=== PATIENT | male | born 1950 | race Caucasian/White ===

== ENCOUNTER 2016-09-10 06:59 | Emergency (ER) | payer OTHER ==
[2016-09-10 08:15] LABS: URINE BILIRUBIN NEGATIVE (NEGATIVE); URINE BLOOD NEGATIVE (NEGATIVE); URINE GLUCOSE (UA) NEGATIVE (NEGATIVE); URINE LEUKOCYTE ESTERASE NEGATIVE (NEGATIVE); URINE NITRITE NEGATIVE (NEGATIVE); URINE PROTEIN TRACE (NEGATIVE); URINE UROBILINOGEN NORMAL (0-1 mg/dl)
[2016-09-10 08:20] LABS: URINE APPEARANCE CLEAR; URINE COLOR YELLOW
--- NOTE | 2016-09-10 10:36 | CT ---
Exam: CT abdomen and pelvis without contrast COMPARISON: None INDICATION: Bilateral flank pain since 09/04/2016. 1400 mL of urine was drained by ED. TECHNIQUE: CT examination of the abdomen and pelvis was obtained without contrast. FINDINGS: Urinary bladder is decompressed by a Khan catheter. There is no hydronephrosis. There is moderate bilateral perinephric stranding which is nonspecific and symmetric. No renal calculus is identified within either kidney, ureter or bladder. Mild to moderate prostatomegaly. 2 cm subcapsular lesion within the inferior aspect of the spleen is noted and likely a cyst. 17 mm cyst is noted within the caudate lobe of the liver. Subcentimeter low-density lesion within the anterior right lower liver is noted, and statistically likely to be a cyst. Liver is otherwise unremarkable on this noncontrast exam. Pancreas is within normal limits. There is no adrenal mass. Gallbladder is unremarkable. Atheromatous but nonaneurysmal abdominal aorta and iliac arteries. Tiny fat-containing left inguinal hernia is noted. The transverse and ascending colon are distended with stool and gas. The descending and rectosigmoid colon are relatively decompressed and there is no discrete transition point. Ensure patient is up-to-date with colonoscopy screening recommendations. There is no bowel obstruction, free air or free intraperitoneal fluid. There is bibasilar atelectasis or scarring, right slightly greater than left. There is no pleural effusion. There are hypoplastic ribs at T12, with only 4 nonrib-bearing lumbar vertebra. There is grade 1 anterolisthesis of L3 on L4 secondary to underlying facet arthropathy. Minor retrolisthesis of L4 on S1 is noted. Degenerative disc disease is most pronounced at L3-4 and L4-S1. IMPRESSION: 1. No hydronephrosis. Nonspecific perinephric stranding is seen bilaterally. Urinary bladder decompressed by Khan catheter. 2. No acute findings identified to explain back or flank pain. 3. Several incidental findings as above, including splenic and hepatic cysts, bibasilar atelectasis or scarring and chronic changes in the bones as above. Findings were discussed with Dr. Khan at 1031 hours 09/10/2016.
[2016-09-10 11:24] LABS: HEMATOCRIT 40.9 % (32.0-52.0); HEMOGLOBIN 14.4 gm/l (14.0-18.0); MEAN CORPUSCULAR HGB CONC 35.2 g/dl (33.0-37.0)
[2016-09-10 11:29] LABS: ABSOLUTE NEUTROPHIL COUNT 7.7 K/mm3 (1.8-7.7); BASO # 0.1 K/mm3 (0.0-0.2); BASO % 0.5 % (0.2-1.0); EOS # 0.1 (0.0-0.5); EOS % 0.6 % (0.9-2.9); IMM NEUT # 0.1 K/mm3 (0-0.2); IMM NEUT% 0.6 % (0-1); LYMPH # 1.2 (1.0-4.8); LYMPH % 11.7 % (15-45); MEAN CELL VOLUME 90.1 fl (80.0-94.0); MEAN CORPUSCULAR HEMOGLOBIN 31.7 pg (27.0-31.0); MEAN PLATELET VOLUME 9.5 fl (7.4-10.4); MONO # 0.8 (0.0-0.8); MONO % 7.9 % (4-12); NEUT % 78.7 % (43-75); PLATELET COUNT 362 K/mm3 (130-400); RED CELL DISTRIBUTION WIDTH 11.5 % (11.5-14.5)
[2016-09-10 11:44] LABS: ALB/GLOB RATIO 1.1 (>1.0); ALBUMIN 3.6 gm/dL (3.5-5.7); CALCIUM 9.3 mg/dL (8.6-10.3)
== END 2016-09-10 11:18 | disposition home or self-care (01) ==
LOC: ED 06:59
DX: R33.9 Retention of urine, unspecified (principal); Z85.47 Personal history of malignant neoplasm of testis; Z87.891 Personal history of nicotine dependence; Z79.899 Other long term (current) drug therapy

== ENCOUNTER 2016-09-21 02:13 | Emergency (ER) | payer OTHER ==
[2016-09-21 02:55] LABS: URINE BILIRUBIN NEGATIVE (NEGATIVE); URINE BLOOD NEGATIVE (NEGATIVE); URINE GLUCOSE (UA) NEGATIVE (NEGATIVE); URINE LEUKOCYTE ESTERASE NEGATIVE (NEGATIVE); URINE NITRITE POSITIVE (NEGATIVE); URINE PROTEIN NEGATIVE (NEGATIVE); URINE UROBILINOGEN NORMAL (0-1 mg/dl)
[2016-09-21 02:58] LABS: URINE APPEARANCE CLEAR; URINE COLOR YELLOW
[2016-09-21 03:01] LABS: URINE BACTERIA 1+; URINE EPITHELIAL CELLS FEW /hpf; URINE RBC 0 /hpf
== END 2016-09-21 04:30 | disposition home or self-care (01) ==
LOC: ED 02:13
DX: R33.0 Drug induced retention of urine (principal); N40.0 Benign prostatic hyperplasia without lower urinary tract symptoms; T48.1X5A Adverse effect of skeletal muscle relaxants [neuromuscular blocking agents], initial encounter; Y92.9 Unspecified place or not applicable

== ENCOUNTER 2016-11-01 07:02 | Day surgery (SDC) | payer OTHER ==
[~2016-11-01 07:02] MED LIST: FENTANYL 250 MCG/5 ML AMP IV PRN; IV START KIT ONE; LACTATED RINGERS 1,000 ML IV SCH; LACTATED RINGERS 1,000 ML ONE; MIDAZOLAM HCL 5 MG/5 ML VIAL IV PRN
[2016-11-01] MEDS ORDERED: FENTANYL 250 MCG/5 ML AMP ONE (08:13)
[2016-11-01] MEDS ORDERED: MIDAZOLAM HCL 5 MG/5 ML VIAL ONE (08:13)
[2016-11-01] MEDS ORDERED: LACTATED RINGERS 1,000 ML ONE (09:03)
--- NOTE | 2016-11-03 14:37 | SURGPATH ---
[facility] [address] [place] [id number] Patient Name: RACHELLE PERRY MR#: [id number] : 1950 Gender: M Specimen #: [id number] Collected: 11/01/2016 Received: 11/02/2016 Reported: 11/03/2016 Submitting Phys: HERI PINA Copy To Phys: [facility] Clinical History / Pre-Operative Diagnosis: SCREENING; RULE OUT CA Specimen Source / Surgical Procedure Performed: #1-MID TRANSVERSE COLON POLYP; #2-PROXIMAL ASCENDING COLON MASS BIOPSY; #3-HEPATIC FLEXURE POLYP; #4-DESCENDING COLON POLYP AT 35 CM X2; #5-SIGMOID COLON POLYP AT 15 CM X2; #6-RECTAL POLYP AT 6 CM HIGH PRIORITY DIAGNOSIS. REQUIRES CLINICAL ATTENTION Interpretation: 1. MID TRANSVERSE COLON, POLYP, BIOPSY: - TUBULAR ADENOMA 2. PROXIMAL ASCENDING COLON, BIOPSY: - ADENOCARCINOMA 3. COLON, HEPATIC FLEXURE POLYP, BIOPSY: - TUBULAR ADENOMA 4. DESCENDING COLON, POLYP AT 35 CM, BIOPSY: - TUBULAR ADENOMA 5. SIGMOID COLON, POLYP AT 15 CM, BIOPSY: - TUBULAR ADENOMA 6. RECTUM, POLYP AT 6 CM, BIOPSY: - TUBULAR ADENOMA Electronically Signed Out Jing Morel M.D. Gross Description: #1 The specimen is received in a formalin filled container labeled with the patient's name and "mid transverse colon polyp". A polypoid red-salinas biopsy is 0.5 x 0.5 x 0.3 cm. Bisected. Totally embedded in one cassette. #2 The specimen is received in a formalin filled container labeled with the patient's name and "proximal ascending mass biopsy". Five pale salinas biopsies are 0.2-0.5 cm. Totally embedded in cassette #2. #3 The specimen is received in a formalin filled container labeled with the patient's name and "hepatic flexure polyp". A nodular, polypoid red-salinas biopsies 1.0 x 0.8 x 0.6 cm. Trisected. Totally embedded in cassette #3. #4 The specimen is received in a formalin filled container labeled with the patient's name and "descending colon polyp at 35 cm". Two nodular, polypoid red-salinas biopsies are 0.4 x 0.4 x 0.3 cm and 1.5 x 1.3 x 1 cm. The larger polyp is trisected and submitted in cassette 4B. Totally embedded in cassettes 4A and 4B. #5 The specimen is received in a formalin filled container labeled with the patient's name and "sigmoid colon polyp at 15 cm". Multiple nodular polypoid red-salinas biopsy fragments are 0.5 x 0.4 x 0.3 cm to 1.5 x 1.3 x 0.8 cm. Some the larger fragments are sectioned. Totally embedded in cassettes 5A-5D. #6 The specimen is received in a formalin filled container labeled with the patient's name and "rectal polyp at 6 cm". Multiple salinas biopsies are together 1.0 x 1.0 x 0.4 cm. Totally embedded in cassette #6. Lara Urias. Microscopic Description: 1. Sections show fragments of adenomatous colonic mucosa without high grade dysplasia. 2. Sections show fragments of colonic mucosa with invasive adenocarcinoma. The tumor grows as cribriforming glandular structures with extensive ulceration. A second review of new malignancy was performed at the intradepartmental pathology conference; the attendees agree with the diagnosis. 3. Sections show fragments of adenomatous colonic mucosa without high grade dysplasia. 4. Sections show fragments of adenomatous colonic mucosa without high grade dysplasia. 5. Sections show fragments of adenomatous colonic mucosa without high grade dysplasia. 6. Sections show fragments of adenomatous colonic mucosa without high grade dysplasia. 1: 99905 2: 51604 3: 99149 4: 55866 5: 25287 6: 84766 C18.2
--- NOTE | 2016-11-07 06:18 | PROCNOTE ---
Joseph Najera [id number] : 1950 DATE: 11/06/2016 This 66-year-old male patient within the practice of Sarah Johnson NP underwent screening colonoscopy on November 01. Multiple benign tubular adenomatous polyps were seen and removed. Additionally, in the very proximal ascending colon and annular mass was noted. Biopsies have confirmed adenocarcinoma within this mass. The patient has been contacted and informed and surgical consultation is recommended and he agrees. He is being referred to Dr. Joseph Alexander. JOB: [id number] CC: Dr. Joseph Johnson NP
== END 2016-11-01 10:00 | disposition home or self-care (01) ==
LOC: SDC 07:02
PROVIDERS: ATTEND Internal Medicine Gastroenterology
PROC: 0DBL8ZX Excision of Transverse Colon, Via Natural or Artificial Opening Endoscopic, Diagnostic (ICD-10-PCS; principal; 2016-11-01)
PROC: 0DBM8ZX Excision of Descending Colon, Via Natural or Artificial Opening Endoscopic, Diagnostic (ICD-10-PCS; 2016-11-01)
PROC: 0DBP8ZX Excision of Rectum, Via Natural or Artificial Opening Endoscopic, Diagnostic (ICD-10-PCS; 2016-11-01)
PROC: 0DBN8ZX Excision of Sigmoid Colon, Via Natural or Artificial Opening Endoscopic, Diagnostic (ICD-10-PCS; 2016-11-01)
PROC: 0DBK8ZX Excision of Ascending Colon, Via Natural or Artificial Opening Endoscopic, Diagnostic (ICD-10-PCS; 2016-11-01)
DX: Z12.11 Encounter for screening for malignant neoplasm of colon (principal); C18.2 Malignant neoplasm of ascending colon; D12.5 Benign neoplasm of sigmoid colon; D12.3 Benign neoplasm of transverse colon; D12.7 Benign neoplasm of rectosigmoid junction; D12.4 Benign neoplasm of descending colon; Z85.47 Personal history of malignant neoplasm of testis; N40.0 Benign prostatic hyperplasia without lower urinary tract symptoms; M79.1 Myalgia
CPT/HCPCS: 45385; 45380; J3010; J2250; J7120 ×2

== ENCOUNTER 2016-11-29 11:55 | Day surgery (SDC) | payer OTHER ==
[2016-11-29] MEDS ORDERED: LACTATED RINGERS 1,000 ML ONE (12:23)
[2016-11-29] MEDS ORDERED: IV START KIT ONE (12:24)
[2016-11-29] MEDS ORDERED: PROPOFOL 40 ML IV ONE (13:37)
--- NOTE | 2016-11-29 19:11 | RAD ---
Exam: Portable chest COMPARISON: None INDICATION: Preop for colonoscopy. FINDINGS: Semierect AP portable view of the chest demonstrates a cardiac silhouette which is within normal limits. Lungs are well-inflated. There is no focal airspace disease or pleural effusion. Bones of the chest wall within normal limits. IMPRESSION: No acute pulmonary process which would preclude this patient from surgery.
== END 2016-11-29 14:55 | disposition home or self-care (01) ==
LOC: SDC 11:55
PROVIDERS: ATTEND Surgery
PROC: 3E0H8GC Introduction of Other Therapeutic Substance into Lower GI, Via Natural or Artificial Opening Endoscopic (ICD-10-PCS; principal; 2016-11-29)
DX: C18.2 Malignant neoplasm of ascending colon (principal); D12.4 Benign neoplasm of descending colon; D12.5 Benign neoplasm of sigmoid colon; K62.1 Rectal polyp; Z87.891 Personal history of nicotine dependence
CPT/HCPCS: 71010; 45381; J7120

== ENCOUNTER 2016-11-30 06:00 | Inpatient (IN) | payer OTHER ==
[~2016-11-30 06:00] MED LIST changes: +ACETAMINOPHEN 500 MG TABLET ONE; +CELECOXIB 200 MG CAPSULE ONE; +ERTAPENEM SODIUM 1 G in NS 0.9% (MINI-BAG PLUS) 50 ML IV PRN; -FENTANYL 250 MCG/5 ML AMP IV PRN; +GABAPENTIN 600 MG TABLET ONE; -LACTATED RINGERS 1,000 ML IV SCH; -MIDAZOLAM HCL 5 MG/5 ML VIAL IV PRN
[2016-11-30] MEDS ORDERED: ACETAMINOPHEN 500 MG TABLET PO SCH (06:30)
[2016-11-30] MEDS ORDERED: GABAPENTIN 600 MG TABLET PO SCH (06:30)
[2016-11-30] MEDS ORDERED: CELECOXIB 200 MG CAPSULE PO ONE (06:30)
[2016-11-30] MEDS ORDERED: MIDAZOLAM HCL 1 MG/ML 2ML VIAL ONE (06:38)
[2016-11-30] MEDS ORDERED: FENTANYL 250 MCG/5 ML AMP ONE (06:38)
[2016-11-30] MEDS ORDERED: KETAMINE HCL UD SYRINGE 100 MG/2 ML IV ONE (06:41)
[2016-11-30] MEDS ORDERED: HYDROMORPHONE HCL 2 MG/ML SYRINGE ONE (06:41)
[2016-11-30] MEDS ORDERED: EPIDURAL PROCEDURE TRAY ONE (07:05)
[2016-11-30] MEDS ORDERED: ROPIVACAINE 0.2% 20 ML VIAL ONE (07:07)
[2016-11-30] MEDS ORDERED: IV START KIT ONE (07:10)
[2016-11-30] MEDS ORDERED: FLUSH ONE (07:44)
[2016-11-30] MEDS ORDERED: SODIUM CHLORIDE 0.9% ONE (07:44)
[2016-11-30] MEDS ORDERED: EPHEDRINE SULFATE UD SYR 25 MG 25 MG/5 ML SYRINGE IV ONE (08:03)
[2016-11-30] MEDS ORDERED: EPHEDRINE SULFATE 50 MG/ML 1ML VIAL ONE (08:07)
[2016-11-30] MEDS ORDERED: ROCURONIUM BROMIDE 10 MG/ML DOSE IV ONE ×2 (08:36→08:50)
[2016-11-30] MEDS ORDERED: PROPOFOL 20 ML IV ONE (08:36)
[2016-11-30] MEDS ORDERED: DIPHENHYDRAMINE HCL 50 MG/1 ML VIAL ONE (08:36)
[2016-11-30] MEDS ORDERED: DEXAMETHASONE SOD PHOS 4 MG/1 ML VIAL ONE (08:36)
[2016-11-30] MEDS ORDERED: ONDANSETRON 4 MG/2ML 2 ML VIAL ONE ×2 (08:36→11:49)
[2016-11-30] MEDS ORDERED: LIDOCAINE 2% (MULTI DOSE) 10 ML VIAL ONE (08:36)
[2016-11-30] MEDS ORDERED: HYDROMORPHONE HCL 1 MG/ML SYRINGE IV PRN (09:02)
[2016-11-30] MEDS ORDERED: ATROPINE SULFATE 0.4 MG/1 ML VIAL IV PRN (09:02)
[2016-11-30] MEDS ORDERED: NALOXONE HCL 0.4 MG/ML VIAL IV PRN (09:02)
[2016-11-30] MEDS ORDERED: FENTANYL 100 MCG/2 ML VIAL IV PRN (09:02)
[2016-11-30] MEDS ORDERED: PROMETHAZINE HCL 25 MG/ML VIAL IM PRN (09:02)
[2016-11-30] MEDS ORDERED: ONDANSETRON 4 MG/2ML 2 ML VIAL IV PRN ×2 (09:02→16:00)
[2016-11-30] MEDS ORDERED: FENTANYL/ROPIVACAINE EPIDURAL 250 ML EP SCH ×2 (09:15→10:13)
[2016-11-30] MEDS ORDERED: EPHEDRINE SULFATE 50 MG/ML 1ML VIAL IV PRN (10:12)
[2016-11-30] MEDS ORDERED: LABETALOL HCL 5 MG/ML 20ML VIAL IV ONE (13:32)
[2016-11-30] MEDS: LABETALOL HCL 5 MG/ML 20ML VIAL IV ONE ×3 (13:35→14:01)
[2016-11-30] MEDS ORDERED: HYDRALAZINE HCL 20 MG/1 ML VIAL IV ONE (14:23)
[2016-11-30] MEDS ORDERED: HYDRALAZINE HCL 20 MG/1 ML VIAL ONE (14:23)
[2016-11-30] MEDS ORDERED: DIPHENHYDRAMINE HCL 25 MG CAPSULE PO PRN (14:47)
[2016-11-30] MEDS ORDERED: BLISTEX LIPSTICK 1 EACH TP PRN (14:47)
[2016-11-30] MEDS ORDERED: MAG HYDROX/AL HYDROX/SIMETH 30 ML UDCUP PO PRN (14:47)
[2016-11-30 15:17] VITALS: BMI 24.3
[2016-11-30] MEDS ORDERED: PCA ADMINISTRATION KIT ONE (16:01)
[2016-11-30] MEDS ORDERED: PUMP TUBING ONE (16:01)
[2016-11-30] MEDS: LACTATED RINGERS 1,000 ML IV SCH (16:10)
[2016-11-30] MEDS: HYDROMORPHONE PCA (MONOJECT) 12 MG/30 ML INJ.SOLN IV SCH ×2 (16:11→18:03)
[2016-11-30] MEDS: ACETAMINOPHEN 500 MG TABLET PO SCH ×2 (18:03→22:00)
[2016-11-30] MEDS: GABAPENTIN 600 MG TABLET PO SCH ×2 (18:03→22:00)
[2016-12-01] MEDS: LACTATED RINGERS 1,000 ML IV SCH ×4 (00:18→18:28)
[2016-12-01] MEDS: ACETAMINOPHEN 500 MG TABLET PO SCH ×4 (03:22→21:26)
[2016-12-01 05:43] LABS: HEMATOCRIT 44.4 % (32.0-52.0); MEAN CELL VOLUME 94.1 fl (80.0-94.0); MEAN CORPUSCULAR HEMOGLOBIN 31.8 pg (27.0-31.0); MEAN CORPUSCULAR HGB CONC 33.8 g/dl (33.0-37.0); RED CELL DISTRIBUTION WIDTH 12.7 % (11.5-14.5)
[2016-12-01 06:09] LABS: ALB/GLOB RATIO 1.6 (>1.0); ALBUMIN 3.5 gm/dL (3.5-5.7)
[2016-12-01] MEDS: HYDROMORPHONE PCA (MONOJECT) 12 MG/30 ML INJ.SOLN IV SCH (06:11)
[2016-12-01] MEDS ORDERED: HYDROMORPHONE HCL 1 MG/ML SYRINGE IV PRN ×2 (07:37→07:51)
[2016-12-01] MEDS ORDERED: OXYCODONE HCL 5 MG TABLET PO PRN (07:38)
--- NOTE | 2016-12-01 07:44 | PDOC43 ---
- Subjective Subjective: Reports Pain Tolerable, Denies Nausea, Denies Fever - Objective Vital Signs Temperature 97.9 F 12/01/16 07:23 Pulse Rate 81 12/01/16 07:23 Respiratory Rate 16 12/01/16 07:23 Blood Pressure 157/91 12/01/16 07:23 O2 Saturation by Pulse Oximetry 95 12/01/16 07:23 Oxygen Delivery Method Room Air Oxygen Flow Rate 0 Laboratory 12/01/16 05:15 12/01/16 05:15 12/01/16 05:15 MCV 94.1 H MCH 31.8 H Anion Gap 17 H Total Protein 5.7 L Globulin 2.2 L Active Medication Orders Category Date Time Status Acetaminophen [Tylenol] Med 11/30/16 14:47 Active 1,000 mg PO Q6H Diphenhydramine HCl [Benadryl] Med 11/30/16 14:47 Active 25 - 50 mg PO Q6H PRN Enoxaparin Sodium [Lovenox] Med 12/01/16 11:00 Active 40 mg SUB-Q Q24H Gabapentin [Neurontin] Med 11/30/16 15:00 Active 600 mg PO TID Hydromorphone HCl [Dilaudid] Med 12/01/16 07:37 Ordered 0.5 - 1 mg IV Q1-2H PRN Ketorolac Tromethamine [Toradol] Med 12/01/16 12:00 Ordered 30 mg IV Q6HR Lactated Ringers 1,000 ml Med 12/01/16 07:39 Ordered IV 100 mls/hr Lip Barnard [Blistex] Med 11/30/16 14:47 Active 1 each TP PRN PRN Magnesium/Al Hydrox/Simeth [Maalox Plus] Med 11/30/16 14:47 Active 30 ml PO Q4H PRN Menthol/Cetylpyridinium [Cepacol] Med 11/30/16 14:47 Active 1 each PO PRN PRN Ondansetron 4 mg/2ml Vial [Zofran] Med 11/30/16 16:00 Active 4 mg IV Q4H PRN Oxycodone HCl [Roxicodone] Med 12/01/16 07:38 Ordered 5 - 10 mg PO Q4H PRN Sodium Chloride 0.9% Flush [Normal Saline 10ml Flush] Med 11/30/16 14:47 Active 10 - 50 ml IV PRN PRN Sodium Chloride 0.9% Flush [Normal Saline 10ml Flush] Med 11/30/16 17:00 Active 10 ml IV Q8HR Intake and Output 11/30/16 12/01/16 12/02/16 06:59 06:59 06:59 Intake Total 5265 Output Total 905 Balance 4360 General: Alert, Oriented x3 Abdomen: Soft, Non-Distended, Other (Ostomy viable) Wound: Shadow Drainage Psych/Mental Status: Normal Affect - Assessment/ Plan (1) Colon cancer Qualifiers: Colon location: hepatic flexure Qualifier Code: (C18.3) Malignant neoplasm of hepatic flexure Status: AcuteAssessment/ Plan: Not using CHARTER COORDINATOR. Use IV bolus and PO meds. UOP is better, so add Toradol. Lovenox and ambulate to prevent DVT. IS. Clear liquids.
[2016-12-01] MEDS ORDERED: HYDROMORPHONE HCL 0.5 MG/0.5 ML SYRINGE IV PRN ×2 (07:50→07:51)
[2016-12-01] MEDS: GABAPENTIN 600 MG TABLET PO SCH ×3 (08:28→21:26)
[2016-12-01] MEDS: KETOROLAC TROMETHAMINE 30 MG/ML 1 ML VIAL IV SCH ×3 (08:29→21:26)
[2016-12-01] MEDS: ENOXAPARIN SODIUM 40 MG/0.4 ML SYRINGE SUB-Q SCH (11:41)
--- NOTE | 2016-12-01 18:55 | HP ---
RACHELLE PERRY [id number] DATE OF SERVICE: 11/29/2016 This is an addendum to history and physical. I spoke to Mr. Perry following his colonoscopy. On that colonoscopy I was able to evaluate the known cancer in the transverse colon. I also found additional polyps within the colon. It looked like there were two sessile lesions, one near the rectosigmoid junction and one possibly higher up in the sigmoid. At this point, I think the distal lesion is more extensive than what can be removed with a TAMIS. For the most part it looks like a benign polyp, but does have some ulcerated areas. It could harbor a malignancy. We had talked about his case previously at cancer conference yesterday. With the amount of advanced polyps that he has had, we discussed the fact that he may be best served with a total colectomy. Based on the polyps that I saw today, I think that is a reasonable plan of action. I have spoken to him and his about this. We talked about the alternative of doing two segmental resections to include an extended right hemicolectomy, as well as a sigmoid colectomy. This would leave him only with a distal transverse and descending colon. He currently has polyps in that area. In the end we decided to proceed with total colectomy. We will plan with surgery tomorrow. I am expecting a total colectomy with an ileorectal anastomosis. I have recommended that we do a J-pouch. I explained that to him. Because of his history of prior radiation, I do not think this is something that we should try to do laparoscopically. I have also recommended that we do a diverting loop ileostomy until we are sure that his J-pouch anastomosis has healed. We further talked about the risks of surgery including bleeding, infection, anastomotic leak, and injury to the pelvic nerves resulting in erectile dysfunction. We talked about cardiopulmonary complications including deep venous thrombosis and pulmonary embolism. He expressed understanding and is willing to proceed. He will continue on clear liquids today. We will have him take erythromycin and neomycin tonight. We will have him do complex carbohydrate drinks. All questions were answered. cc: PAUL Curran Dr.
--- NOTE | 2016-12-01 20:34 | OP ---
RACHELLE PERRY [id number] DATE OF PROCEDURE: 11/30/2016 PREOPERATIVE DIAGNOSIS: Transverse colon cancer, large unresectable polyp at rectosigmoid junction, history of multiple advanced polyps. POSTOPERATIVE DIAGNOSIS: Transverse colon cancer, large unresectable polyp at rectosigmoid junction, history of multiple advanced polyps, lesion left lateral segment of liver of undetermined behavior. PROCEDURE: OPEN TOTAL COLECTOMY WITH LOW J-POUCH RECTAL ANASTOMOSIS, LOOP ILEOSTOMY, WEDGE RESECTION OF LESION LEFT LATERAL SEGMENT OF LIVER. SURGEON: Dr. Rachelle Alexander ASSISTANT MANAGER TRAINEE: Dr. Silver June ANESTHESIA: Konrad Gauthier CRNA, general endotracheal. Preoperative epidural catheter placement. INDICATIONS: This is a 66-year-old male who initially presented to the emergency room. On evaluation a CAT scan showed a possible colonic abnormality. A colonoscopy demonstrated a mass in the ascending colon, for which biopsies showed adenocarcinoma. In retrospect evaluation of the CT scan it is actually in the transverse colon. There were multiple other advanced polyps that were removed. There was also an adenomatous polyp at the rectosigmoid junction that was not amenable to endoscopic removal. He subsequently underwent a follow-up colonoscopy by me that showed additional residual polyps, and it was felt that he would benefit from total colectomy rather than two separate segmental resections. DESCRIPTION: With informed consent, he first had an epidural catheter placed. Preoperatively he is taken back to the operating room where he was laid supine on the OR table. General endotracheal anesthetic was administered. The legs were placed in Darwin stirrups. A Khan catheter was placed. The abdomen and perineal region were prepped and draped in the usual fashion. A midline laparotomy incision was made with a knife. Electrocautery was used to divide the subcutaneous fat. The midline fascia was opened with electrocautery. The peritoneum was opened with Metzenbaum scissors and extended along the length of the incision. We used an OMNI retractor to provide exposure. The known cancer was palpable in the mid transverse colon. It was actually more to the left than was expected based on the CT scan and colonoscopic findings. There was a small palpable abnormality on the anterior surface of the left lateral segment of the liver. This was firm. It was not more than 4 mm in size. I started to excise it with electrocautery. I ended-up doing a wedge resection to include the anterior edge of the left lateral segment. This was sent to pathology as a permanent section. We had good hemostasis at that site. He had a very mobile right colon. The descending colon was quite stuck laterally. I could not see ink or palpate a tumor in the rectosigmoid junction. We started by mobilizing the distal ileum and right colon. Again, it was quite mobile to begin with, making it difficult to get into the correct plane. Eventually we were able to separate the mesentery from Gerota's fascia. This is extended up to the hepatic flexure. We made a decision to preserve the greater omentum. I the greater omentum from the transverse colon from right to left. I did that to just short of the splenic flexure. With the right colon and transverse colon mobilized, I then identified ileocolic vascular pedicle. I tried to preserve the vessels to the distal ileum. We divided the distal ileum with the MY stapler. We used a LigaSure to go through some of the mesentery. I divided the right colic vessels using an Endo MY vascular stapler. I elevated the mesentery off of the duodenum and isolated the middle colic vessels. It appeared that this would be the lymph node bearing areas for the known cancer. It was ligated using the Endo MY vascular stapler as high as possible. We then turned to the descending colon and began to mobilize that at the white line of Toldt. The descending colon appeared to be somewhat twisted and densely adherent to Gerota's fascia. It was unclear if this was from prior radiation. Eventually we were able to mobilize the descending colon. Once that was mobilized, I was able to go up and around the splenic flexure using a combination of electrocautery and LigaSure. We divided the mesentery with LigaSure. I had the sigmoid colon completely mobilized from the lateral pelvic wall using electrocautery. We were able to identify the ureter deep and lateral to this. I divided the left colic and sigmoid vessels using the Endo MY vascular stapler. I divided the superior rectal vessels using the LigaSure. I got into a plane just anterior to the sacrum and dissected down into the pelvis. I incised the pelvic peritoneum on both sides using electrocautery. We made sure to stay medial to both ureters. At the peritoneal reflection, I then opened that with electrocautery on each side and then anterior to the rectum. Once I was below the peritoneal reflection, it did feel like we could appreciate an intraluminal mass. There was no obvious lymphadenopathy present. I did use the LigaSure to divide through the mesorectum until we had gotten to an area distal to the tumor. We were actually quite low down in the pelvis. After clearing the mesorectal fat from the distal resection line, pulling all of that mesorectal tissue along up with the specimen, I used a CONTOUR MY stapler to divide the rectum. With that the specimen was taken to the back table and it was opened. It appeared we had a good distal margin. There were other residual polyps present. This was handed-off to pathology. Investigating the distal stump with a sizer, it appeared that it would accommodate a 31-stapler. The distal rectal stump was probably 6-8 cm in length. From above, I mobilized the distal ileum so that it would fall down in the pelvis without tension. I made a J-loop and stitched the end of the ileum to the bowel proximal to that. A jacob clamp was placed proximal to that. An enterotomy was created in the end of the bowel. A MY stapler was placed into both limbs and fired, creating the J-pouch. A purse string of 2-0 silk was placed in the enterotomy. The anvil of the EEA stapler was placed and the purses string was tightened. From below, Dr. June inserted the stapler into the rectal stump. The trocar was advanced just posterior to the staple line. The J-pouch was mated with the stapler and brought down to the appropriate level of tension. We made sure there was no twisting. We had very prominent seminal vesicles around the rectal stump, and these had to actually be retracted out of the way. The stapler was brought down to the appropriate level of tension, then fired. The stapler was removed. We had two complete mucosa donuts. We filled the pelvis with fluid and air-tested the anastomosis, and it did not have a leak. I decided preoperatively because of the history of radiation and this low pelvic anastomosis that we would do a diverting loop ileostomy. I found the most mobile area of ileum proximal to the J-pouch that would come through the right rectus. A defect was created in the skin using a knife and Yan. A cruciate incision was made in the rectal fascia. The muscle was split, the peritoneum was incised and the small bowel was brought-out through the abdominal wall. A bar was placed beneath the loop. I did put one stitch in the distal ileum just above the J-pouch to the lateral peritoneal reflection to keep the J-pouch laying without kinks proximal to the pouch itself. I irrigated the abdomen. We appeared to have adequate hemostasis. We made sure there was omentum down around the visceral structures. The midline fascia was reapproximated with looped 0-PDS. Intermittent internal retention sutures of 0-Vicryl were also placed. The wound was irrigated and the skin edges reapproximated with erma. A sterile dressing was applied. I then opened the loop ileostomy. I everted it in abrupt fashion using 3-0 Vicryls. An ostomy bag was applied. He was hemodynamically stable during the procedure and was taken to the recovery room in stable condition. Note was made that needle, instrument and lap counts were reported as correct at the time of closure. cc: PAUL Curran Dr.
[2016-12-02] MEDS: ACETAMINOPHEN 500 MG TABLET PO SCH ×4 (04:10→21:06)
[2016-12-02] MEDS: KETOROLAC TROMETHAMINE 30 MG/ML 1 ML VIAL IV SCH ×4 (04:10→21:05)
[2016-12-02] MEDS: LACTATED RINGERS 1,000 ML IV SCH ×2 (04:14→14:43)
[2016-12-02 06:29] LABS: HEMATOCRIT 34.5 % (32.0-52.0); HEMOGLOBIN 11.8 gm/l (14.0-18.0); MEAN CELL VOLUME 93.8 fl (80.0-94.0); MEAN CORPUSCULAR HEMOGLOBIN 32.1 pg (27.0-31.0); MEAN CORPUSCULAR HGB CONC 34.2 g/dl (33.0-37.0); RED CELL DISTRIBUTION WIDTH 12.7 % (11.5-14.5)
[2016-12-02 06:56] LABS: CALCIUM 8.6 mg/dL (8.6-10.3)
[2016-12-02] MEDS: GABAPENTIN 600 MG TABLET PO SCH ×3 (08:13→21:06)
[2016-12-02] MEDS: ENOXAPARIN SODIUM 40 MG/0.4 ML SYRINGE SUB-Q SCH (10:49)
[2016-12-03] MEDS ORDERED: METOCLOPRAMIDE HCL 5 MG/ML 2ML VIAL IV PRN (00:23)
[2016-12-03] MEDS ORDERED: PUMP TUBING ONE (00:57)
[2016-12-03] MEDS: D5 1/2NS with 20 mEq KCL 1,000 ML IV SCH ×3 (01:21→20:50)
[2016-12-03] MEDS: PANTOPRAZOLE SODIUM 40 MG VIAL IV SCH ×3 (01:21→20:52)
[2016-12-03] MEDS: METOCLOPRAMIDE HCL 5 MG/ML 2ML VIAL IV SCH ×5 (01:22→23:39)
[2016-12-03] MEDS: ACETAMINOPHEN 500 MG TABLET PO SCH ×2 (04:10→08:52)
[2016-12-03] MEDS ORDERED: SODIUM CHLORIDE 0.9% 1,000 ML ONE (06:04)
[2016-12-03] MEDS ORDERED: SODIUM CHLORIDE 0.9% 500 ML IV SCH (06:07)
[2016-12-03] MEDS ORDERED: SODIUM CHLORIDE 0.9% 1,000 ML IV SCH (06:15)
[2016-12-03] MEDS: GABAPENTIN 600 MG TABLET PO SCH ×4 (08:52→23:58)
[2016-12-03 10:02] LABS: HEMATOCRIT 40.7 % (32.0-52.0); HEMOGLOBIN 13.6 gm/l (14.0-18.0); MEAN CELL VOLUME 93.6 fl (80.0-94.0); MEAN CORPUSCULAR HEMOGLOBIN 31.3 pg (27.0-31.0); MEAN CORPUSCULAR HGB CONC 33.4 g/dl (33.0-37.0); RED CELL DISTRIBUTION WIDTH 12.2 % (11.5-14.5)
[2016-12-03 10:22] LABS: ALB/GLOB RATIO 1.3 (>1.0); ALBUMIN 3.2 gm/dL (3.5-5.7); CALCIUM 8.8 mg/dL (8.6-10.3)
[2016-12-03] MEDS: ENOXAPARIN SODIUM 40 MG/0.4 ML SYRINGE SUB-Q SCH (11:31)
--- NOTE | 2016-12-03 12:07 | RAD ---
ABDOMEN OR KUB COMPARISON: CT abdomen and pelvis without contrast, 09/10/2016 HISTORY: Nasogastric tube placement. FINDINGS: View: Supine abdomen. Support a clinically: The tip of the nasogastric tube projects into the left upper quadrant, below the left hemidiaphragm, in the region of the stomach. Bowel gas pattern: Mildly distended small intestine. Organomegaly: None. Soft tissue calcification: None. Postoperative change: Vertical line of skin erma in the ventral abdomen Bones: Degenerative changes in spine. IMPRESSION: Satisfactory position of the nasogastric tube, projecting in the left upper quadrant in the region of the stomach.
[2016-12-03] MEDS ORDERED: ACETAMINOPHEN 650 MG SUP PR PRN (12:39)
[2016-12-03] MEDS: ACETAMINOPHEN 650 MG SUP PR SCH ×2 (14:12→20:49)
[2016-12-03] MEDS: MENTHOL/CETYLPYRD 1 EACH LOZENGE PO PRN ×5 (16:13→23:58)
[2016-12-04] MEDS: ACETAMINOPHEN 650 MG SUP PR SCH ×4 (02:13→22:19)
[2016-12-04] MEDS: METOCLOPRAMIDE HCL 5 MG/ML 2ML VIAL IV SCH ×5 (05:27→22:16)
[2016-12-04 05:52] LABS: HEMATOCRIT 39.9 % (32.0-52.0); HEMOGLOBIN 13.4 gm/l (14.0-18.0); MEAN CORPUSCULAR HEMOGLOBIN 31.9 pg (27.0-31.0); MEAN CORPUSCULAR HGB CONC 33.6 g/dl (33.0-37.0); RED CELL DISTRIBUTION WIDTH 12.4 % (11.5-14.5)
[2016-12-04 06:18] LABS: ALB/GLOB RATIO 1.3 (>1.0); CALCIUM 8.8 mg/dL (8.6-10.3)
[2016-12-04] MEDS: D5 1/2NS with 20 mEq KCL 1,000 ML IV SCH ×2 (07:12→16:47)
[2016-12-04] MEDS: PANTOPRAZOLE SODIUM 40 MG VIAL IV SCH ×2 (09:27→22:16)
[2016-12-04] MEDS: GABAPENTIN 600 MG TABLET PO SCH ×3 (09:28→22:19)
[2016-12-04] MEDS: MENTHOL/CETYLPYRD 1 EACH LOZENGE PO PRN ×3 (09:35→22:23)
[2016-12-04] MEDS: TAMSULOSIN HCL 0.4 MG CAPSULE.DR PO SCH (10:16)
--- NOTE | 2016-12-04 11:05 | SURGPATH ---
[facility] 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 LIVER, BIOPSY: - BILE DUCT ADENOMA 2. COLON, COLECTOMY: - INVASIVE MODERATELY DIFFERENTIATED ADENOCARCINOMA - TWENTY FOUR LYMPH NODES WITH NO EVIDENCE OF MALIGNANCY (0/24) - STAGE pT3, pN0 - SEE SYNOPTIC REPORT COLORECTAL CANCER CASE SUMMARY: SPECIMEN: COLON PROCEDURE: Colectomy SPECIMEN LENGTH: 85 cm TUMOR SITE: Cecum TUMOR SIZE: 4.5 cm long x 3.3 cm wide x 1.5 cm deep MACROSCOPIC TUMOR PERFORATION: Absent MACROSCOPIC INTACTNESS OF MESORECTUM: Not applicable HISTOLOGIC TYPE: Adenocarcinoma HISTOLOGIC GRADE: Low-grade (moderately differentiated) MICROSCOPIC TUMOR EXTENSION: Tumor invades through the muscularis propria into the subserosal adipose tissue MARGINS: Proximal Margin: 28.5 cm Distal Margin: 60 cm Circumferential/Radial Margin: 0.2 cm Mesenteric Margin: 7 cm TREATMENT EFFECT (NEOADJUVANT THERAPY): No prior treatment LYMPHATIC INVASION: Not identified LARGE VESSEL INVASION: Not identified PERINEURAL INVASION: Not identified TUMOR DEPOSITS (DISCONTINUOUS EXTRAMURAL EXTENSION): Not identified TYPE OF POLYP IN WHICH INVASIVE CARCINOMA AROSE: Indeterminate TNM DESCRIPTORS: Not applicable PRIMARY TUMOR (pT): pT3: Tumor invades through the muscularis propria into pericolorectal tissues REGIONAL LYMPH NODES (pN): pN0: No regional lymph node metastasis Number involved / Number examined: 0 / 24 DISTANT METASTASIS (pM): Not applicable ANCILLARY STUDIES: MMR testing by IHC is pending and will be reported separately. ADDITIONAL PATHOLOGIC FINDINGS: Tubular adenomas Electronically Signed Out Sachin Arguelles M.D. Gross Description: #1 The specimen is received in a formalin filled container labeled with the patient's name and "liver biopsy, left lateral segment". An irregular, cautery roughened biopsy of [place] liver tissue is 1.8 x 0.8 x 0.6 cm. The specimen is multiply cross sectioned and entirely submitted as five sections in cassette #1. #2 The specimen is received in a formalin filled container labeled with the patient's name and "total colon and upper rectum". SPECIMEN: Subtotal colectomy Organ/tissue received: Subtotal colectomy Fixation: Formalin Number of pieces: One Dimensions: The bowel is 80 cm in length and has an external diameter ranging from 3 cm at the distal end to 5 cm at the cecum. The attached terminal ileum is 5 cm. The pericolic fat averages 3 cm. The grossly negative vermiform appendix is 6.0 x 0.5 cm. Orientation (If indicated): Not indicated TUMOR: Location: Distal to the ileocecal valve, 23.5 cm Dimensions/description: The almost entirely circumferential, primarily exophytic, centrally ulcerated red-salinas mass is 4.5 x 3.3 x 1.5 cm Distance from margins: Proximal: 28.5 cm Distal: 60 cm Radial/Vascular: 7 cm Estimated depth of invasion: Grossly the mass extends through the bowel wall, superficially into the adjacent pericolic fat and within 0.2 cm of the black inked serosa. DESCRIPTION OF UNINVOLVED COLON/RECTUM AND ADDITIONAL PATHOLOGIC FEATURES: Serosa: The serosa is glistening and sal[place] with scant surface adhesions Mucosa: The mucosa is glistening, [place] and has the usual folds Mesorectum: Intact and unremarkable Other: Distal to the mass there are several nodular red-salinas polyps, 1.5 x 1.0 x 0.8 cm to 2.5 x 1.5 x 0.7 cm. Sectioning through the appendix reveals no nodule or fecaliths. REGIONAL LYMPH NODES: Sectioning through the attached pericolic fat reveals 23 pink tentatively identified lymph nodes, 0.2-0.6 cm. METASTASIS TO OTHER ORGANS OR STRUCTURES (M1): TISSUE SUBMITTED FOR MICROSCOPIC EVALUATION: 2A-proximal margin 2B-distal margin 2C-vascular margin 2D-appendix 2E and 2F-mass with adjacent black inked serosa 2G and 2H-mass with adjacent pericolic fat 2I-three smaller distal polyps 2J-midsized distal polyp multiply sectioned 2K and 2L-largest distal polyp multiply sectioned 2M-seven pericolic lymph nodes 2N-eight pericolic lymph nodes 2O-eight pericolic lymph nodes Heather Urias Microscopic Description: 1. The sections show liver with an area showing a proliferation of bland bile ducts and a fibrotic stroma with chronic inflammatory cells. 2. The sections of the colectomy specimen shows an invasive moderately differentiated adenocarcinoma which invades into and through the muscularis propria. Additional tubular adenomas are identified. There are a total of 24 lymph nodes identified and none of the lymph nodes show metastatic adenocarcinoma. 1: [id number] 2: 05400, G8721 C18.0
[2016-12-04] MEDS: ENOXAPARIN SODIUM 40 MG/0.4 ML SYRINGE SUB-Q SCH (12:16)
[2016-12-05] MEDS: ACETAMINOPHEN 650 MG SUP PR SCH ×4 (02:30→20:03)
[2016-12-05] MEDS: D5 1/2NS with 20 mEq KCL 1,000 ML IV SCH ×3 (02:30→14:11)
[2016-12-05] MEDS: METOCLOPRAMIDE HCL 5 MG/ML 2ML VIAL IV SCH ×4 (03:54→21:42)
[2016-12-05] MEDS: TAMSULOSIN HCL 0.4 MG CAPSULE.DR PO SCH (08:44)
[2016-12-05] MEDS: PANTOPRAZOLE SODIUM 40 MG VIAL IV SCH ×2 (08:44→20:03)
[2016-12-05] MEDS: GABAPENTIN 600 MG TABLET PO SCH ×3 (08:44→20:03)
[2016-12-05] MEDS: MENTHOL/CETYLPYRD 1 EACH LOZENGE PO PRN (08:50)
[2016-12-05] MEDS: ENOXAPARIN SODIUM 40 MG/0.4 ML SYRINGE SUB-Q SCH (12:25)
--- NOTE | 2016-12-05 13:43 | PDOC43 ---
- Subjective Subjective: Reports Flatus, Reports Pain Tolerable, Denies Nausea - Objective Vital Signs Temperature 98.3 F 12/05/16 11:57 Pulse Rate 77 12/05/16 11:57 Respiratory Rate 16 12/05/16 11:57 Blood Pressure 142/73 12/05/16 11:57 O2 Saturation by Pulse Oximetry 97 12/05/16 11:57 Oxygen Delivery Method Room Air Oxygen Flow Rate 0 Laboratory 12/04/16 05:15 12/04/16 05:15 Active Medication Orders Category Date Time Status Acetaminophen [Tylenol] Med 12/03/16 13:00 Active 650 mg NH Q6H D5 1/2NS with 20 mEq KCL [D51/2NS with 20 mEq KCL] 1, Med 12/05/16 13:41 Ordered 000 ml IV 50 mls/hr Diphenhydramine HCl [Benadryl] Med 11/30/16 14:47 Active 25 - 50 mg PO Q6H PRN Enoxaparin Sodium [Lovenox] Med 12/01/16 11:00 Active 40 mg SUB-Q Q24H Gabapentin [Neurontin] Med 11/30/16 15:00 Active 600 mg PO TID Hydromorphone HCl [Dilaudid] Med 12/01/16 07:51 Active 0.5 - 1 mg IV Q1H PRN Hydromorphone HCl [Dilaudid] Med 12/01/16 07:51 Active 0.5 - 1 mg IV Q1H PRN Lip [place] [Blistex] Med 11/30/16 14:47 Active 1 each TP PRN PRN Magnesium/Al Hydrox/Simeth [Maalox Plus] Med 11/30/16 14:47 Active 30 ml PO Q4H PRN Menthol/Cetylpyridinium [Cepacol] Med 11/30/16 14:47 Active 1 each PO PRN PRN Metoclopramide HCl [Reglan] Med 12/04/16 10:00 Active 10 mg IV Q6H Ondansetron 4 mg/2ml Vial [Zofran] Med 11/30/16 16:00 Active 4 mg IV Q4H PRN Oxycodone HCl [Roxicodone] Med 12/01/16 07:38 Active 5 - 10 mg PO Q4H PRN Pantoprazole Sodium [Protonix] Med 12/03/16 00:30 Active 40 mg IV BID Sodium Chloride 0.9% Flush [Normal Saline 10ml Flush] Med 11/30/16 14:47 Active 10 - 50 ml IV PRN PRN Sodium Chloride 0.9% Flush [Normal Saline 10ml Flush] Med 11/30/16 17:00 Active 10 ml IV Q8HR Tamsulosin HCl [Flomax] Med 12/04/16 09:30 Active 0.4 mg PO DAILY Intake and Output 12/04/16 12/05/16 12/06/16 06:59 06:59 06:59 Intake Total 3673 2323 Output Total 4276 5460 Balance -792 -3738 Tubes and Drains Output NG/OG Output 75 NG/OG Output 200 General: Alert, Oriented x3 Abdomen: Soft, Non-Distended Wound: Dressing Clean/Dry/Intact - Assessment/ Plan (1) Colon cancer Qualifiers: Colon location: hepatic flexure Qualifier Code: (C18.3) Malignant neoplasm of hepatic flexure Status: AcuteAssessment/ Plan: DC NG. DC desouza. Lovenox and ambulate to prevent DVT. IS. Full liquids. - Disposition Patient doing well today = liquid stool in stoma bag + flatus. NG removed. DC desouza today an continue flomax.
[2016-12-06] MEDS: ACETAMINOPHEN 650 MG SUP PR SCH ×3 (01:26→14:14)
[2016-12-06] MEDS: METOCLOPRAMIDE HCL 5 MG/ML 2ML VIAL IV SCH ×4 (04:20→21:19)
[2016-12-06 06:05] LABS: HEMATOCRIT 37.1 % (32.0-52.0); HEMOGLOBIN 12.5 gm/l (14.0-18.0); MEAN CELL VOLUME 93.7 fl (80.0-94.0); MEAN CORPUSCULAR HEMOGLOBIN 31.6 pg (27.0-31.0); MEAN CORPUSCULAR HGB CONC 33.7 g/dl (33.0-37.0); RED CELL DISTRIBUTION WIDTH 12.3 % (11.5-14.5)
[2016-12-06] MEDS: D5 1/2NS with 20 mEq KCL 1,000 ML IV SCH (06:09)
[2016-12-06] MEDS: TAMSULOSIN HCL 0.4 MG CAPSULE.DR PO SCH (09:08)
[2016-12-06] MEDS: GABAPENTIN 600 MG TABLET PO SCH ×3 (09:09→21:19)
[2016-12-06] MEDS: PANTOPRAZOLE SODIUM 40 MG VIAL IV SCH ×2 (09:09→21:19)
--- NOTE | 2016-12-06 10:39 | PDOC43 ---
- Subjective Subjective: Reports Pain Tolerable, Denies Nausea - Objective Vital Signs Temperature 99.3 F 12/06/16 07:26 Pulse Rate 79 12/06/16 07:26 Respiratory Rate 17 12/06/16 07:26 Blood Pressure 127/79 12/06/16 07:26 O2 Saturation by Pulse Oximetry 96 12/06/16 07:26 Oxygen Delivery Method Room Air Oxygen Flow Rate 0 Laboratory 12/06/16 05:30 12/06/16 05:30 RBC 3.96 L [facility] 31.6 H Active Medication Orders Category Date Time Status Acetaminophen [Tylenol] Med 12/03/16 13:00 Active 650 mg AL Q6H D5 1/2NS with 20 mEq KCL [D51/2NS with 20 mEq KCL] 1, Med 12/05/16 13:41 Stop Req 000 ml IV 50 mls/hr Diphenhydramine HCl [Benadryl] Med 11/30/16 14:47 Active 25 - 50 mg PO Q6H PRN Enoxaparin Sodium [Lovenox] Med 12/01/16 11:00 Active 40 mg SUB-Q Q24H Gabapentin [Neurontin] Med 11/30/16 15:00 Active 600 mg PO TID Hydromorphone HCl [Dilaudid] Med 12/01/16 07:51 Active 0.5 - 1 mg IV Q1H PRN Hydromorphone HCl [Dilaudid] Med 12/01/16 07:51 Active 0.5 - 1 mg IV Q1H PRN Lip [place] [Blistex] Med 11/30/16 14:47 Active 1 each TP PRN PRN Magnesium/Al Hydrox/Simeth [Maalox Plus] Med 11/30/16 14:47 Active 30 ml PO Q4H PRN Menthol/Cetylpyridinium [Cepacol] Med 11/30/16 14:47 Active 1 each PO PRN PRN Metoclopramide HCl [Reglan] Med 12/04/16 10:00 Active 10 mg IV Q6H Ondansetron 4 mg/2ml Vial [Zofran] Med 11/30/16 16:00 Active 4 mg IV Q4H PRN Oxycodone HCl [Roxicodone] Med 12/01/16 07:38 Active 5 - 10 mg PO Q4H PRN Pantoprazole Sodium [Protonix] Med 12/03/16 00:30 Active 40 mg IV BID Sodium Chloride 0.9% Flush [Normal Saline 10ml Flush] Med 11/30/16 14:47 Active 10 - 50 ml IV PRN PRN Sodium Chloride 0.9% Flush [Normal Saline 10ml Flush] Med 11/30/16 17:00 Active 10 ml IV Q8HR Tamsulosin HCl [Flomax] Med 12/04/16 09:30 Active 0.4 mg PO DAILY Intake and Output 12/05/16 12/06/16 12/07/16 06:59 06:59 06:59 Intake Total 2323 1968 120 Output Total 4450 2305 Balance -2127 -337 120 Tubes and Drains Output NG/OG Output 80 General: Alert, Oriented x3 Abdomen: Soft, Non-Distended Wound: Dressing Clean/Dry/Intact - Assessment/ Plan (1) Colon cancer Qualifiers: Colon location: hepatic flexure Qualifier Code: (C18.3) Malignant neoplasm of hepatic flexure Status: AcuteAssessment/ Plan: Lovenox and ambulate to prevent DVT. IS. ADAT. - Disposition Patient doing well today = liquid stool in stoma bag + flatus. NG removed. DC desouza today an continue flomax.
[2016-12-06] MEDS: ENOXAPARIN SODIUM 40 MG/0.4 ML SYRINGE SUB-Q SCH (11:32)
[2016-12-06 13:22] LABS: CALCIUM 8.8 mg/dL (8.6-10.3)
[2016-12-06] MEDS ORDERED: ACETAMINOPHEN 325 MG TABLET PO PRN (20:11)
[2016-12-07] MEDS: ACETAMINOPHEN 650 MG SUP PR SCH (00:06)
[2016-12-07] MEDS: D5 1/2NS with 20 mEq KCL 1,000 ML IV SCH (00:07)
[2016-12-07] MEDS: METOCLOPRAMIDE HCL 5 MG/ML 2ML VIAL IV SCH ×2 (04:31→09:00)
[2016-12-07 07:29] VITALS: BP 140/82
[2016-12-07] MEDS: GABAPENTIN 600 MG TABLET PO SCH (08:19)
[2016-12-07] MEDS: TAMSULOSIN HCL 0.4 MG CAPSULE.DR PO SCH (08:19)
[2016-12-07] MEDS: PANTOPRAZOLE SODIUM 40 MG VIAL IV SCH (09:53)
== END 2016-12-07 10:45 | disposition home or self-care (01) | DRG 330 ==
LOC: OR 06:00 → MS 14:54
PROVIDERS: ADMIT Surgery; ATTEND Surgery
PROC: 0DTM0ZZ Resection of Descending Colon, Open Approach (ICD-10-PCS; principal; 2016-11-30)
PROC: 0DTL0ZZ Resection of Transverse Colon, Open Approach (ICD-10-PCS; 2016-11-30)
PROC: 0DTN0ZZ Resection of Sigmoid Colon, Open Approach (ICD-10-PCS; 2016-11-30)
PROC: 0FB20ZX Excision of Left Lobe Liver, Open Approach, Diagnostic (ICD-10-PCS; 2016-11-30)
PROC: 0D1B0Z4 Bypass Ileum to Cutaneous, Open Approach (ICD-10-PCS; 2016-11-30)
PROC: 0D9670Z Drainage of Stomach with Drainage Device, Via Natural or Artificial Opening (ICD-10-PCS; 2016-11-30)
DX: C18.3 Malignant neoplasm of hepatic flexure (principal); C18.4 Malignant neoplasm of transverse colon; N13.8 Other obstructive and reflux uropathy; C78.7 Secondary malignant neoplasm of liver and intrahepatic bile duct; D12.7 Benign neoplasm of rectosigmoid junction; K76.9 Liver disease, unspecified; N40.1 Benign prostatic hyperplasia with lower urinary tract symptoms